=== PATIENT | male | born 1960 | race Caucasian/White ===

== ENCOUNTER 2016-12-17 10:37 | Emergency (ER) | payer BC ==
[~2016-12-17] VITALS: Ht 172.7 cm; Wt 100.9 kg
[~2016-12-17 10:37] MED LIST: ASPEC81 PO; CRS10 PO; KFLUNK; LISI5TAB3 PO; LRTUNK PO; LSX20 PO; MCRKUNK; METO50TA7 PO; PLVUNK
[2016-12-17 10:40] VITALS: TEMP 37.3; Ht 172.7 cm; Wt 100.9 kg
[2016-12-17] MEDS ORDERED: OXYMETAZOLINE HCL 0.05% NA SPR 15 ML BTL ONE (10:46)
[2016-12-17] MEDS ORDERED: HYDROCODONE/ACETAMOPHEN 5/325MG TAB PO STA (11:01)
[2016-12-17] MEDS ORDERED: XYLOCAINE 1%/SOD BICARB 20 ML VIAL INFIL ONE (11:15)
[2016-12-17 12:13] LABS: BASO % 0.2 %; BASO ABS # 0.03 K/uL (0-0.2); COMPLETE YES; EOS % 0.2 %; HEMATOCRIT 38.4 % (42-52); IG% 0.3 %; LYMPH % 12.6 %; LYMPH ABS # 2.19 K/uL (1.2-3.4); MEAN CELL VOLUME 90.6 fL (80-100); MEAN CORPUSCULAR HEMOGLOBIN 31.4 pg (25-34); MEAN CORPUSCULAR HGB CONC 34.6 g/dl (32-36); MEAN PLATELET VOLUME 10.7 fL (7.4-10.4); MONO % 7.3 %; NEUT % 79.4 %; PLATELET COUNT 253 K/uL (130-400); RED BLOOD COUNT 4.24 M/uL (4.7-6.1); WHITE BLOOD COUNT 17.38 K/uL (4.8-10.8)
[2016-12-17 12:24] LABS: PARTIAL THROMBOPLASTIN RATIO 1.1; PROTHROMBIN TIME (PATIENT) 11.2 SECONDS (9.0-12.0)
[2016-12-17 12:34] LABS: BUN/CREATININE RATIO 16.5 (10-20); CALCIUM 8.7 mg/dl (8.5-10.1); CREATININE 0.84 mg/dl (0.60-1.40); POTASSIUM 4.6 mmol/L (3.5-5.1)
[2016-12-17] MEDS ORDERED: METF-384 PO (13:03)
[2016-12-17] MEDS ORDERED: LISI-729 PO (13:03)
[2016-12-17] MEDS ORDERED: ANTICRE6 PO (13:05)
[2016-12-17 14:24] VITALS: BP 157/70
[2016-12-17] MEDS ORDERED: ACETAMINOPHEN 500 MG TAB PO ONE (15:56)
[2016-12-17 15:58] VITALS: PULSE 66; O2SAT 99
--- NOTE | 2016-12-17 17:39 | EMERGENCY ROOM VISIT NOTE ---
History Report prepared by Zelda: Maxim Triveid Under the Supervision of: Dr. Jalen Bateman M.D. First contact with patient: 10:46 Chief Complaint: NOSE BLEED (MINOR) Stated Complaint: NOSE BLEED History of Present Illness The patient is a 56 year old male who presents to the Emergency Room with complaints of an intermittent nose bleed that started yesterday afternoon. Per the nursing staff, the patient was seen for a spontaneous nose bleed yesterday in the [facility]. The patient was bleeding for about a half hour per the patient's before deciding to head to the ER there. The doctor there was going to cauterize the patient's nose bleed but there was too much blood. The patient had a rhino rocket nasal packing put in instead. The doctor there said the patient's family physician could take out the packing, but the patient said his doctor today at the [facility] walk-in clinic would not remove it because the patient was very close to passing out and was extremely unresponsive. The patient's thought the patient did pass out. The patient is also on Plavix, and has a stent in his heart. He has very bad discomfort, which includes pain in his face, head, and nasal area. He rates the pain as a 12 out of 10 in severity at worst. The patient, after examination, rates the pain as a 6 out of 10 in severity. He is also nauseous. He did not have much bleeding today. The patient is a type 2 diabetic and did not have breakfast this morning. He has not taken any Tylenol recently. Pt denies fevers, chills, diaphoresis, visual changes, neck pain, chest pain, breathing difficulties, vomiting, abdominal pain , back pain, melena, hematochezia, urinary symptoms, numbness, weakness, lymphadenopathy, rash, or other complaints. Source of History: patient, spouse/significant other, nursing staff Onset: Yesterday afternoon Position: nose (nose bleed) Symptom Intensity: pain is 12 out of 10 in severity at worst Timing: intermittent Associated Symptoms: + nausea Note: Associated symptoms: Pain in his face, head, and nasal area. Review of Systems See HPI for pertinent positives and negatives. A total of ten systems were reviewed and were otherwise negative. Past Medical & Surgical Medical Problems: (1) Diabetes (2) Heart disease (3) HTN (hypertension) Family History Heart disease Hypertension Social History Smoking Status: Never Smoker Alcohol Use: none Marital Status: Housing Status: lives with family Occupation Status: employed Current/Historical Medications Scheduled Aspirin Enteric Coated (Ecotrin Or Generic *), 81 MG PO DAILY Lisinopril (Prinivil), 5 MG PO DAILY Metformin Hcl (Glucophage), 1,000 MG PO BID Metoprolol Succ (Toprol Xl) (Toprol-Xl), 25 MG PO DAILY [Antibiotic], 1 TAB PO Q6 Miscellaneous Medications Clopidogrel (Plavix Unknown Dose) Allergies Coded Allergies: No Known Allergies (Verified , 10/24/06) Physical Exam Vital Signs Date Time Temp Pulse Resp B/P Pulse Ox O2 Delivery O2 Flow Rate FiO2 12/17/16 15:58 66 18 99 12/17/16 14:24 58 18 157/70 95 Room Air 12/17/16 12:38 60 18 135/70 96 Room Air 12/17/16 11:38 56 18 170/87 96 Room Air 60 175/83 56 169/85 12/17/16 11:22 57 12/17/16 10:40 37.3 64 18 203/73 96 Room Air Physical Exam GENERAL: Awake, alert, well-appearing, in moderate distress HENT: No posterior bleeding noted in oropharynx. Left nare is normal without any sign of bleeding. Superficial blood vessel on right septum. Mucosal irritation or septum. EYES: Normal conjunctiva. Sclera non-icteric. NECK: Supple. No nuchal rigidity. FROM. No JVD. RESPIRATORY: Clear to auscultation. CARDIAC: Regular rate, normal rhythm. Extremities warm and well perfused. Pulses equal. ABDOMEN: Soft, non-distended. No tenderness to palpation. No rebound or guarding. No masses. RECTAL: Deferred. MUSCULOSKELETAL: Chest examination reveals no tenderness. The back is symmetrical on inspection without obvious abnormality. There is no CVA tenderness to palpation. No joint edema. LOWER EXTREMITIES: Calves are equal size bilaterally and non-tender. No edema. No discoloration. NEURO: Normal sensorium. No sensory or motor deficits noted. SKIN: No rash or jaundice noted. Medical Decision & Procedures Laboratory Results 12/17/16 12:05 Red Blood Count 4.24, Mean Corpuscular Volume 90.6, Mean Corpuscular Hemoglobin 31.4, Mean Corpuscular Hemoglobin Concent 34.6, Mean Platelet Volume 10.7, Neutrophils (%) (Auto) 79.4, Lymphocytes (%) (Auto) 12.6, Monocytes (%) (Auto) 7.3, Eosinophils (%) (Auto) 0.2, Basophils (%) (Auto) 0.2, Neutrophils # (Auto) 13.80, Lymphocytes # (Auto) 2.19, Monocytes # (Auto) 1.27, Eosinophils # (Auto) 0.04, Basophils # (Auto) 0.03 12/17/16 12:05 Test 12/17/16 12:05 White Blood Count 17.38 K/uL (4.8-10.8) Red Blood Count 4.24 M/uL (4.7-6.1) Hemoglobin 13.3 g/dL (14.0-18.0) Hematocrit 38.4 % (42-52) Mean Corpuscular Volume 90.6 fL (80-100) Mean Corpuscular Hemoglobin 31.4 pg (25-34) Mean Corpuscular Hemoglobin Concent 34.6 g/dl (32-36) Platelet Count 253 K/uL (130-400) Mean Platelet Volume 10.7 fL (7.4-10.4) Neutrophils (%) (Auto) 79.4 % Lymphocytes (%) (Auto) 12.6 % Monocytes (%) (Auto) 7.3 % Eosinophils (%) (Auto) 0.2 % Basophils (%) (Auto) 0.2 % Neutrophils # (Auto) 13.80 K/uL (1.4-6.5) Lymphocytes # (Auto) 2.19 K/uL (1.2-3.4) Monocytes # (Auto) 1.27 K/uL (0.11-0.59) Eosinophils # (Auto) 0.04 K/uL (0-0.5) Basophils # (Auto) 0.03 K/uL (0-0.2) RDW Standard Deviation 42.0 fL (36.4-46.3) RDW Coefficient of Variation 12.8 % (11.5-14.5) Immature Granulocyte % (Auto) 0.3 % Immature Granulocyte # (Auto) 0.05 K/uL (0.00-0.02) Prothrombin Time 11.2 SECONDS (9.0-12.0) Prothromb Time International Ratio 1.0 (0.9-1.1) Activated Partial Thromboplast Time 28.5 SECONDS (21.0-31.0) Partial Thromboplastin Ratio 1.1 Anion Gap 9.0 mmol/L (3-11) Est Creatinine Clear Calc Drug Dose 111.7 ml/min Estimated GFR () 112.7 Estimated GFR (Non- 97.2 BUN/Creatinine Ratio 16.5 (10-20) Calcium Level 8.7 mg/dl (8.5-10.1) Troponin I < 0.015 ng/ml (0-0.045) Laboratory results reviewed by me Medications Administered Medications (Trade) Dose Ordered Sig/Jared Route Start Time Stop Time Status Last Admin Dose Admin Acetaminophen/ Hydrocodone Bitart ([place] 5/325 Tab) 1 tab NOW STAT PO 12/17/16 11:01 12/17/16 11:03 DC 12/17/16 11:12 1 TAB Acetaminophen (Tylenol Tab) 1,000 mg STK-MED ONCE PO 12/17/16 15:56 12/17/16 15:57 DC 12/17/16 15:56 1,000 MG ECG Indication: syncope Rate (beats per minute): 58 Rhythm: sinus bradycardia Findings: T-wave inversion (Inferior), other (LVH) Change: Inferior T-wave inversion compared to prior. ECG 2 revealed sinus bradycardia at 59. Inferior T-wave inversion in lead 3 only. Appears normal. No ectopy. ED Course 1046: The patient was evaluated in room B7. A complete history and physical exam was performed. Rapid rhino balloon was removed from right nares. I put 1 ml of Atomized lidocaine into right nares. 1101: Ordered [place] 5/325 Tab 1 tab PO. 1115: Ordered Buffered Lidocaine 1% Inj 20 ml INFIL. 1300: I reevaluated the patient and he feels 100% better. 1438: I reevaluated the patient and he feels much better. I talked to him about his EKG and stress test, and because of the findings, I will touch base with his Ty polisher dial. 1441: I discussed the patient with Dr. Alberto Crawford cardiology - he says that all is well, and he has a follow up appointment scheduled for him. He recommends that the patient continue his medications. 1550: I reevaluated the patient and he is resting comfortably. The patient verbally expressed understanding and agreement of the treatment plan. The patient will be discharged. Medical Decision Prior records/ancillary studies reviewed. Triage Nursing notes reviewed and agree them. Additional history obtained from patient's . The patient's history was concerning for epistaxis and facial pain with a brief syncopal episode. Differential diagnosis: Etiologies such as spontaneous bleed, coagulopathy, traumatic injury, fracture, septal hematoma, posterior epistaxis, cardiac sources, electrolyte abnormality, as well as other pathologies were entertained. Physical examination findings: As above. Anterior bleeding source. ER treatment provided: Removal of rapid Rhino balloon Oral [place] Direct pressure and then nasal suctioning. Intranasal Afrin Atomized lidocaine On reassessment the patient felt better. No additional bleeding. Diagnostics interpreted by me: The labs revealed leukocytosis on CBC. Record review indicates a leukocytosis for the past several years. The patient will have a follow-up for this and if it's persistent will need a consultation with hematology. Chemistry panel unremarkable. Troponin negative. Consultation: Consultation was placed with Dr. Dominguez of cardiology. The case was discussed and diagnostics were reviewed. Since the patient has no chest pain or atypical cardiac symptoms he was felt the isolated inversion was incidental and he should continue with his outpatient follow-up. The patient and felt comfortable with this plan. We did review his recent stress test where he had some inducible ischemia but this will be treated medically. He did not have any similar symptoms today when compared to stress testing. By the evaluation outlined above emergent etiologies such as coagulopathy, traumatic injury, fracture, septal hematoma, posterior epistaxis, as well as others were deemed relatively unlikely. The patient was given a dose of Tylenol to go in case his pain increases due to the weather and not having Tylenol at home. I did advise against NSAIDs. The patient and were informed about the findings as listed above. All questions were answered and they were pleased with the treatment. Return instructions were outlined and the patient was discharged in stable condition. Outpatient prescription management: No change Referral: The patient was referred his primary physician. The chart was completed utilizing [employer] voice recognition software. Grammatical errors, random word insertions, pronoun errors, and incomplete sentences are an occasional consequence of this system due to software limitations, ambient noise, and hardware issues. Any formal questions or concerns about the content, text, or information contained within the body of this dictation should be directly addressed to the physician for clarification. Consults Time Called: 1438 Consulting Physician: Dr. Alberto Crawford cardiology Returned Call: 1445 I discussed the patient with Dr. Alberto Crawford cardiology - he says that all is well, and he has a follow up appointment scheduled for him. He recommends that the patient continue his medications. Impression Primary Impression: Epistaxis Additional Impressions: Syncope Facial pain Scribe Attestation The scribe's documentation has been prepared under my direction and personally reviewed by me in its entirety. I confirm that the note above accurately reflects all work, treatment, procedures, and medical decision making performed by me. Departure Information Dispostion Home / Self-Care Referrals Beka Nance M.D. (PCP) Forms HOME CARE DOCUMENTATION FORM, IMPORTANT VISIT INFORMATION, WORK / SCHOOL INSTRUCTIONS Patient Instructions My [facility] Additional Instructions EPISTAXIS (NOSE BLEED) INSTRUCTIONS: Avoid scratching, rubbing, picking, or blowing your nose. The snuff drier your nasal passages the more likely they are to bleed. The following two products are available [id number] at most drug stores/pharmacies. Lazear Tutor Key nasal spray or similar generic saline spray to keep the nose moist 3 to 4 times a day. Apply Winston gel 2-3 times daily to the nostrils to keep them moist. If bleeding recurs apply 2 sprays of Afrin and direct pressure for an uninterrupted 20 minutes with the nasal clip. On and off pressure is much less effective because it will disturb the clots that are forming. If the bleeding is still a problem after 20 minutes or is so heavy despite the pressure return to the emergency department. Continue current medications. Follow-up with your primary care physician in 2 to 3 days for a recheck of your current condition. Follow up with cardiology as scheduled. Problem Qualifiers
== END 2016-12-17 15:58 | disposition home or self-care (01) ==
LOC: EDBD 10:37 → C.EDB 10:39
DX: R04.0 Epistaxis (principal); R55 Syncope and collapse; R51 Headache; E11.9 Type 2 diabetes mellitus without complications; I11.9 Hypertensive heart disease without heart failure; Z79.899 Other long term (current) drug therapy; Z79.84 Long term (current) use of oral hypoglycemic drugs; Z79.82 Long term (current) use of aspirin; Z82.49 Family history of ischemic heart disease and other diseases of the circulatory system

== ENCOUNTER → 2017-01-16 | Outpatient (CLI) | payer BC ==
[~2017-01-16] MED LIST changes: +ANTICRE6 PO; -CRS10 PO; -KFLUNK; +LISI-729 PO; -LISI5TAB3 PO; -LRTUNK PO; -LSX20 PO; -MCRKUNK; +METF-384 PO
[2017-01-16 12:22] LABS: BASO % 0.7 %; BASO ABS # 0.07 K/uL (0-0.2); COMPLETE YES; EOS % 1.7 %; HEMATOCRIT 41.8 % (42-52); IG% 0.4 %; LYMPH % 27.9 %; LYMPH ABS # 2.95 K/uL (1.2-3.4); MEAN CELL VOLUME 93.9 fL (80-100); MEAN CORPUSCULAR HEMOGLOBIN 31.2 pg (25-34); MEAN CORPUSCULAR HGB CONC 33.3 g/dl (32-36); MEAN PLATELET VOLUME 11.3 fL (7.4-10.4); MONO % 7.5 %; NEUT % 61.8 %; PLATELET COUNT 256 K/uL (130-400); RED BLOOD COUNT 4.45 M/uL (4.7-6.1); WHITE BLOOD COUNT 10.59 K/uL (4.8-10.8)
[2017-01-16 12:34] LABS: ESTIMATED AVERAGE GLUCOSE 108 mg/dl; HA1C FLAG Normal (Normal)
[2017-01-16 12:46] LABS: BLOOD UREA NITROGEN 17 mg/dl (7-18); BUN/CREATININE RATIO 19.3 (10-20); CALCIUM 8.8 mg/dl (8.5-10.1); CARBON DIOXIDE 23 mmol/L (21-32); CHLORIDE 108 mmol/L (98-107); CREATININE 0.87 mg/dl (0.60-1.40); GLUCOSE 89 mg/dl (70-99); POTASSIUM 4.5 mmol/L (3.5-5.1); SODIUM 140 mmol/L (136-145)
== END | disposition home or self-care (01) ==
LOC: C.LABPVFM 09:34
PROVIDERS: ATTEND Nurse Practitioner Family
DX: E11.9 Type 2 diabetes mellitus without complications (principal)